=== PATIENT | male | born 1970 ===

== ENCOUNTER 2024-11-30 06:31 | Day surgery (SDC) | payer OTHER, SELFPAY | END 2024-11-30 15:52 | disposition home or self-care (01) | LOC: GI 06:31 | PROVIDERS: ATTENDING PHYSICIAN Surgery | DX: Z12.11 Encounter for screening for malignant neoplasm of colon (principal); K64.9 Unspecified hemorrhoids; Q43.8 Other specified congenital malformations of intestine; D12.2 Benign neoplasm of ascending colon; D12.3 Benign neoplasm of transverse colon; K63.5 Polyp of colon | CPT/HCPCS: 45385; 45381; 45380; 88305 ==